=== PATIENT | male | born 1980 | race Caucasian/White ===

== ENCOUNTER 2020-05-15 01:48 | Emergency (ER) | payer BC, SELFPAY ==
[2020-05-15 01:49] VITALS: BP 137/96; PULSE 109; RESP 18; TEMP 37.3; O2SAT 99; BMI 272.8
--- NOTE | 2020-05-15 02:02 | CT_ITS ---
PROCEDURE: CT ABDOMEN PELVIS W CON CLINICAL INDICATION: black stools abdominal tenderness, dark stools COMPARISON: No exams were available for comparison TECHNIQUE: IV Contrast: 75ML OPTIRAY 350 Oral Contrast None Axial images obtained with sagittal and coronal reformats. All CT scans at the facility use one or more dose reduction, viz: automated exposure control, ma/kV adjustment per patient size (including targeted exams where dose is matched to indication, i.e. head), or iterative reconstruction technique. FINDINGS: LOWER THORAX: There is patchy ground-glass infiltrate in the right middle lobe ABDOMEN & PELVIS: Vague low-density changes are present in the left hepatic lobe along the falciform ligament and may be due to focal fatty infiltration. The spleen, adrenal glands, pancreas, and kidneys have an unremarkable appearance. There is a moderate amount of retained colonic feces. No evidence of appendicitis or diverticulitis. No pelvic mass or abnormal fluid collection. No acute bony anomaly. There is a small umbilical hernia which contains fat. IMPRESSION: 1. Ground-glass infiltrate in the right middle lobe consistent with pneumonia. This is nonspecific but could be seen with COVID 19 pneumonia 2. Constipation Dictated by: Troy Farah MD 05/15/2020 06:15 Troy Farah MD in [place] 05/15/2020 06:15
[2020-05-15 02:16] LABS: Basophils # 0.1 K/mm3 (0-0.2); Basophils % 1.1 % (0.1-2.0); Eosinophils # 0.1 K/mm3 (0.0-0.4); Hematocrit 42.1 % (42.0-52.0); Hemoglobin 14.9 g/dL (14.1-18.0); Lymphocytes # 6.2 K/mm3 (0.7-4.5); Lymphocytes % 48.1 % (10-50); Mean Corpuscular HGB Conc 35.4 g/dL (31.8-35.4); Mean Corpuscular Hemoglobin 29.8 pg (27.0-31.2); Mean Corpuscular Volume 84.3 fl (80-94); Mean Platelet Volume 9.1 fl (7.4-10.4); Monocytes % 7.5 % (1.7-9.3); Neutrophils # 5.5 K/mm3 (1.8-7.8); Neutrophils % 42.5 % (37.0-80.0); Platelet Count 233 K/mm3 (142-424); Red Blood Count 4.99 M/mm3 (4.60-6.20); Red Cell Distribution Width 13.6 % (11.5-17.5); White Blood Count 12.9 K/mm3 (4.8-10.8)
--- NOTE | 2020-05-15 02:20 | PC.NURSE ---
Pt drank half of the Gastrografen and refuses to drink anymore. He states we are trying to poisen him, we are unable to redirect pt or educate him at this time.
[2020-05-15 02:22] LABS: Alanine Aminotransferase 89 U/L (12-78); Albumin Level 4.5 g/dl (3.5-5.0); Albumin/Globulin Ratio 1.6 (1.1-1.8); Alkaline Phosphatase 91 U/L (38-126); Amylase 60 U/L (30-110); Anion Gap 12.7 mEq/L (5-15); Aspartate Amino Transferase 134 U/L (17-59); Bilirubin,Total 0.4 mg/dl (0.2-1.3); Blood Urea Nitrogen 15 mg/dl (9-20); Calcium 10.2 mg/dl (8.4-10.2); Carbon Dioxide 31 mmol/L (22.0-30.0); Chloride 102 mmol/L (98-107); Creatinine Clearance Estimated 113 mL/min (50-200); Estimated Glomerular Filt Rate 93 ml/min (>60); GFR (African American) 113 ML/MIN (>60); Globulin 2.8 g/dL (1.3-3.2); Glucose 103 mg/dl (74-100); Lipase 54 U/L (23-300); Potassium 3.7 mmoL/L (3.5-5.1); Sodium 142 mmol/L (136-145); Total Protein,Serum 7.3 g/dl (6.3-8.2)
[2020-05-15 02:27] LABS: C-Reactive Protein 16.2 mg/L (0-4)
[2020-05-15 02:28] LABS: Ethyl Alcohol < 10 mg/dl (0-10)
[2020-05-15 02:53] LABS: Occult Blood,Stool Positive (Negative)
[2020-05-15 02:55] LABS: Erythrocyte Sedimentation Rate 12 mm/hr (0-15)
[2020-05-15 03:00] VITALS: BP 126/94; PULSE 64; RESP 18; O2SAT 99
[2020-05-15 04:34] LABS: Coronavirus 19 IgG Antibody Negative (Negative); Coronavirus 19 IgM Antibody Negative (Negative)
--- NOTE | 2020-05-15 05:10 | [facility].EDGIBL ---
ED Disposition Clinical Impression: Gastritis Qualifiers: Gastritis type: unspecified gastritis Chronicity: unspecified Gastritis bleeding: presence of bleeding unspecified Qualified Code(s): K29.70 - Gastritis, unspecified, without bleeding Disposition: Home, Self-Care Condition on Discharge: Good Instructions: DI for Gastrointestinal Bleeding Additional Instructions: use meds and see pcp Prescriptions: Pantoprazole Sodium [Protonix 40mg tablet] 40 mg PO DAILY #30 tab Transmission Status: Pending to [facility]/pharmacy #[id number] Referrals: PCP,No [Primary Care Provider] - - Critical Care Critical Care Time: No Attestation: On 05/15/20, the high probability of a clinically significant, sudden or life threatening deterioration of the following system(s) required my full and direct attention, intervention and personal management. The time I documented below is in addition to time spent performing reported procedures but includes the following listed in this critical care notation. Medical Decision Making - Medical Records Medical records reviewed: Yes: I reviewed the patient's medical records. - Dennis Inquiry Pt receiving controlled substance: No Vital Signs: 05/15/20 01:49 05/15/20 03:00 05/15/20 05:40 Temperature 99.1 F Temperature Source Oral Pulse Rate [Right] 109 H 64 95 H Respiratory Rate 18 18 18 Blood Pressure [Right Arm] 137/96 H 126/94 H 129/95 H Blood Pressure Mean [Right Arm] 109 104 106 02 Sat by Pulse Oximetry 99 99 100 Oxygen Delivery Method Room Air Room Air Room Air - Lab Data Lab results reviewed: Yes: I reviewed the patient's lab results. Lab Results 05/15/20 01:50: WBC 12.9 H, RBC 4.99, Hgb 14.9, Hct 42.1, MCV 84.3, MCH 29.8, MCHC 35.4, RDW 13.6, Plt Count 233, MPV 9.1, Neut % (Auto) 42.5, Lymph % (Auto) 48.1, Hunt % (Auto) 7.5, Eos % (Auto) 1.0, Baso % (Auto) 1.1, Neut # (Auto) 5.5, Lymph # (Auto) 6.2 H, Hunt # (Auto) 1.0, Eos # (Auto) 0.1, Baso # (Auto) 0.1, ESR 12 05/15/20 01:50: Sodium 142, Potassium 3.7, Chloride 102, Carbon Dioxide 31 H, Anion Gap 12.7, BUN 15, Creatinine 0.90, Estimated Creat Clear 113, Estimated GFR 93, Est GFR ( Amer) 113, Glucose 103 H, Calcium 10.2, Total Bilirubin 0.4, AST 134 H, ALT 89 H, Alkaline Phosphatase 91, C-Reactive Protein 16.2 H, Total Protein 7.3, Albumin 4.5, Globulin 2.8, Albumin/Globulin Ratio 1.6, Amylase 60, Lipase 54 05/15/20 01:50: Plasma/Serum Alcohol < 10 05/15/20 01:50: SARS-CoV-2 IgG Ab (Rapid) Negative, SARS-CoV-2 IgM Ab (Rapid) Negative 05/15/20 02:35: Stool Occult Blood Positive A Result diagrams: 05/15/20 01:50 05/15/20 01:50 Orders (Tests/Meds): ED MEDICATIONS Generic Name Dose Route Start Last Admin Trade Name Freq PRN Reason Stop Dose Admin Sodium Chloride 1,000 mls @ 999 mls/hr 05/15/20 02:15 05/15/20 02:05 Sod Chlor 0.9% 1000ml Bag IV 05/15/20 03:15 999 mls/hr .[id number] NICHOLE Administration Discontinued Medications Generic Name Dose Route Start Last Admin Trade Name Freq PRN Reason Stop Dose Admin Diatrizoate Meglum/Diatrizoate Sod 30 ml 05/15/20 02:01 05/15/20 02:05 Diatrizoate Luz 66% & Diatrizoate Na 10% 30ml Udc PO 05/15/20 02:02 30 ml ONCE ONE Administration Iopamidol 75 ml 05/15/20 04:55 05/15/20 04:56 Iopamidol-370 (76%);100ml Bottle IV 05/15/20 04:56 75 ml ONCE ONE Administration Ondansetron HCl 4 mg 05/15/20 02:01 05/15/20 02:05 Ondansetron 4mg/2ml Vial IV 05/15/20 02:02 4 mg ONCE ONE Administration Pantoprazole Sodium 40 mg 05/15/20 03:35 05/15/20 03:41 Pantoprazole 40mg Vial IV 05/15/20 03:36 40 mg ONCE ONE Administration Sodium Chloride 10 ml 05/15/20 04:55 05/15/20 04:56 Sodium Chloride 0.9% 10ml Syr (Rad Only) IV 05/15/20 04:56 10 ml ONCE ONE Administration ORDERS Category Date Time Status Drug Screen,Urine Stat Lab 05/15/20 02:02 Ordered Urinalysis and Microscopic Stat Lab 05/15/20 02:02 Ordered - CT Da
[2020-05-15 05:40] VITALS: BP 129/95; PULSE 95; RESP 18; O2SAT 100
--- NOTE | 2020-05-15 07:09 | SW/DCPLANNER ---
Addendum entered by Molly Burnham 05/15/20 11:04: I have followed up with [facility] [employer] and dispatch has stated that transportation should be here within the next hour. Addendum entered by Molly Burnham 05/15/20 08:10: [facility] [employer] has contacted me back stating it could be 2-3 hours prior to transport. Original Note: I have set up [facility] [employer] for this patient. Dispatch has stated that they would contact me back with a time in route.
--- NOTE | 2020-05-15 07:30 | PC.NURSE ---
Case Management contacted to arrange transportation for pt to [facility] where his family is. Per report pt was resident of the [facility] and was DC from there and was not to come back after DC from the hospital.
--- NOTE | 2020-05-15 08:10 | PC.NURSE ---
care management called advising transportation will be about 2-3 hrs.
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
--- NOTE | 2020-05-15 11:05 | PC.NURSE ---
transportation truck states they will be here within the hour
[2020-05-15 12:13] VITALS: BP 126/94; PULSE 89; RESP 20; TEMP 37.3; O2SAT 99
== END 2020-05-15 12:14 | disposition home or self-care (01) ==
PROVIDERS: Emergency Provider Emergency Medicine
DX: K29.70 Gastritis, unspecified, without bleeding (principal); Z01.84 Encounter for antibody response examination; M79.7 Fibromyalgia; F17.210 Nicotine dependence, cigarettes, uncomplicated; Z21 Asymptomatic human immunodeficiency virus [HIV] infection status; F11.10 Opioid abuse, uncomplicated; K76.9 Liver disease, unspecified
CPT/HCPCS: 74177; 80053; 82150; 82272; 83690; 85025; 85651; 86140; 86328; 96365; 96375; 99283; G0328; J2405; Q9967